=== PATIENT | male | born 1975 | race Caucasian/White ===

== ENCOUNTER 2017-06-17 01:56 | Inpatient (IN) | payer BC, SELFPAY ==
[~2017-06-17] VITALS: Ht 170.2 cm; Wt 75.5 kg
[2017-06-17 03:08] LABS: MEAN CORPUSCULAR HEMOGLOBIN 30.3 pg (27.0-33.0); MEAN CORPUSCULAR HGB CONC 34.6 g/dl (32.0-36.5); MEAN CORPUSCULAR VOLUME 87.5 fl (80.0-96.0); RED CELL DISTRIBUTION WIDTH 12.2 % (11.5-14.5); WHITE BLOOD COUNT 11.5 K/mm3 (4.0-10.0)
[2017-06-17 04:02] LABS: ALBUMIN 4.2 GM/DL (3.2-5.2); ALKALINE PHOSPHATASE 80 U/L (45-117); ALT/SGPT 33 U/L (12-78); ANION GAP 12 MEQ/L (8-16); AST/SGOT 20 U/L (15-37); BILIRUBIN,DIRECT 0.2 MG/DL (0.0-0.2); BILIRUBIN,TOTAL 0.4 MG/DL (0.2-1.0); BLOOD UREA NITROGEN 14 MG/DL (7-18); CALCIUM LEVEL 8.7 MG/DL (8.5-10.1); CARBON DIOXIDE LEVEL 23 MEQ/L (21-32); CHLORIDE LEVEL 111 MEQ/L (98-107); CREATININE FOR GFR 0.77 MG/DL (0.70-1.30); GLOMERULAR FILTRATION RATE > 60.0 (>60); GLUCOSE, FASTING 89 MG/DL (70-105); POTASSIUM SERUM 4.1 MEQ/L (3.5-5.1); SODIUM LEVEL 146 MEQ/L (136-145); TOTAL PROTEIN 7.7 GM/DL (6.4-8.2)
[2017-06-17 04:03] LABS: METHADONE URINE NEGATIVE (NEGATIVE)
[2017-06-17] MEDS ORDERED: LORazepam 0.5 MG TAB PO STA (09:04)
--- NOTE | 2017-06-17 10:31 | REP ---
Head CT without contrast: History: Alcohol use. Comparison study: No comparison study. CT findings: Bone window settings demonstrate an intact bony calvarium. There is no evidence of skull fracture or incidental bony calvarial lesion. The visualized paranasal sinuses appear clear. No intraorbital abnormality is seen. On soft tissue window setting images; the lateral, third, and fourth ventricles are normal in size and position. There is a focal 5 mm low density area in the periventricular white matter of the left posterior temporal lobe which is nonspecific. This may be a small lacunar infarct, focus of demyelination, or early small vessel atherosclerotic change. There are is no evidence of intracranial hemorrhage. No mass, edema, cortical infarction, or midline shift is seen. No extra-axial fluid collection is appreciated. Impression: Nonspecific 5 mm focus of periventricular low density left temporal lobe. This is nonspecific consistent with small lacunar infarct, focus of demyelination, or early small vessel atherosclerotic change. Otherwise negative noncontrast head CT. Signed by Guillermo Kirk MD 06/17/2017 10:23 A
[2017-06-17] MEDS ORDERED: LORazepam 1 MG TAB PO STA (11:42)
--- NOTE | 2017-06-17 13:35 | REP ---
MRI BRAIN WITHOUT CONTRAST: HISTORY: Unknown temporal lobe lesion seen on CT study June 17, 2017. Report of a prior CT study of the brain from an outside facility is available dated November 10, 2016. This also describes of 8 mm hypodensity in the periventricular white matter of the left temporal parietal region. TECHNIQUE: Axial and sagittal imaging planes are utilized for T1 and T2-weighted scans. Sequences include spin echo, fast spin echo, FLAIR, and diffusion weighted sequences. MRI FINDINGS: No bony calvarial lesion is seen. There is no MR evidence of significant paranasal sinus disease. No intraorbital abnormality is seen. Craniocervical junction and upper cervical cord are normal in appearance. Diffusion weighted scan show no evidence to suggest acute ischemia. There is no evidence of intracranial hemorrhage. No extra-axial fluid collection or mass is seen. The study confirms the presence of a sharply circumscribed high T2 low T1 signal intensity 6 mm lesion in the periventricular white matter of the left posterior temporal lobe. This corresponds to the CT abnormality. This solitary lesion is felt to be most compatible with an old lacunar infarct. No other abnormal white matter lesion is seen. The exam is otherwise unremarkable. IMPRESSION: Sharply circumscribed, 6 mm, solitary, low T1/high T2 periventricular lesion left temporal lobe most consistent with old lacunar infarct. This corresponds with the findings described on the CT study from an outside institution dated November 10, 2016 as well as today's CT study. Signed by Guillermo Kirk MD 06/17/2017 02:48 P
[2017-06-17 15:26] VITALS: BP 138/82
[2017-06-17] MEDS ORDERED: LORazepam 2 MG TAB PO PRN (17:00)
[2017-06-17] MEDS ORDERED: ACETAMINOPHEN TAB 650MG DOSE (2X325MG) PO PRN (17:00)
[2017-06-17] MEDS ORDERED: MOM 30ML SUSPENSION UDC PO PRN (17:00)
[2017-06-17] MEDS ORDERED: MAALOX 30 ML SUSP *UDC PO PRN (17:00)
[2017-06-17] MEDS: traZODone 50 MG TAB PO PRN (21:31)
[2017-06-17] MEDS: FOLIC ACID 1 MG TAB PO SCH (21:31)
[2017-06-17] MEDS: MULTIVITAMINS/MINERALS THERAP 1 TAB PO SCH (21:31)
[2017-06-17] MEDS: THIAMINE 100 MG TAB PO SCH (21:32)
[2017-06-17 21:35] VITALS: BP 178/81
[2017-06-18 07:01] VITALS: BP_SYST 117; BP_SYST 141; BP_DIAS 64; BP_DIAS 84
[2017-06-18] MEDS: THIAMINE 100 MG TAB PO SCH ×2 (07:30→20:16)
[2017-06-18] MEDS: FOLIC ACID 1 MG TAB PO SCH (07:30)
[2017-06-18] MEDS: MULTIVITAMINS/MINERALS THERAP 1 TAB PO SCH (07:30)
[2017-06-18 10:42] VITALS: BP 141/84
[2017-06-18] MEDS: LORazepam 1 MG TAB PO PRN ×2 (12:29→21:00)
[2017-06-18 18:00] VITALS: BP 129/67
[2017-06-18 20:00] VITALS: BP 129/67
[2017-06-18] MEDS: OLANZapine 2.5MG TABLET PO SCH (20:16)
[2017-06-19 06:32] VITALS: BP 127/85
[2017-06-19] MEDS: FOLIC ACID 1 MG TAB PO SCH (09:21)
[2017-06-19] MEDS: THIAMINE 100 MG TAB PO SCH ×2 (09:21→20:13)
[2017-06-19] MEDS: MULTIVITAMINS/MINERALS THERAP 1 TAB PO SCH (09:21)
[2017-06-19] MEDS: OLANZapine ORAL DISINTEGRATING TAB 5MG PO PRN ×2 (13:25→20:13)
--- NOTE | 2017-06-19 17:39 | HPE ---
DATE OF ADMISSION: 06/17/2017 HISTORY OF PRESENT ILLNESS: Please refer to psychiatric history and evaluation for further details on this admission. This examination and history is intended for medical issues, which may need treatment, followup or consultation on this 41-year-old male. PRIMARY CARE PROVIDER: He states that he has an appointment on 07/31/2017 with a new primary care provider, Dr. Zayas, in [place]. ALLERGIES: No known allergies. SOCIAL HISTORY: He is single. He has a 9-year-old daughter. EtOH is two to four beers per day. Smokes none. Recreational drug use is marijuana. PAST MEDICAL HISTORY: Negative. PAST SURGICAL HISTORY: Tonsillectomy, adenoidectomy, bilateral inguinal hernia repair. HOME MEDICATIONS: None. FAMILY HISTORY: Noncontributory. LABORATORY STUDIES: WBC 11.5, hemoglobin 15.3, hematocrit 44.1, platelets 299. Sodium 146, potassium 4.1, chloride 111, CO2 23, BUN 14, creatinine 0.77. Toxicology screen positive for cannabinoids. EtOH was 0.166. MRI of the brain showed old lacunar infarcts in the left upper lobe, nothing new. REVIEW OF SYSTEMS: Ten systems review was done and was unremarkable. The patient had no complaints other than jittery and slightly nauseated with sweats from alcohol withdrawal. He was drinking fluids. No vomiting or diarrhea. OBJECTIVE: GENERAL: 41-year-old cooperative male in no acute distress. Height 67 inches, weight 75.8 kg. Body Mass Index (BMI) 26.2. Blood pressure 138/82, pulse 86, respirations 16, temperature 98.6. The patient is alert and oriented times three. HEENT: Pupils are equal and reactive to light. Extraocular muscles intact. Sclerae clear. Conjunctivae normal. No facial asymmetry. Pharynx, gums and tongue pink and moist. Tongue is midline. NECK: Supple without lymphadenopathy, thyromegaly or goiter. Carotids 2+ without bruit. CHEST: Clear to auscultation without wheeze or retraction. HEART: Regular. ABDOMEN: Benign. Bowel sounds positive. GENITOURINARY/RECTAL: Not done. EXTREMITIES: Equal strenght. Full range of motion. No cyanosis, clubbing or edema. Peripheral pulses equal and palpable bilaterally. SKIN: Warm and dry. IMPRESSION/PLAN: 1. Psychiatric plan per psychiatry. 2. Monitor and treat for alcohol withdrawal. No acute medical issues.
--- NOTE | 2017-06-19 17:44 | MHIPNPDOC ---
[facility] Progress Note Progress Note DATE OF SERVICE: 06/19/17 HISTORY: Patient was seen and evaluated for his progress in the inpatient unit went safety stuff and nurse. Patient reported that he was feeling happy before coming to the hospital. Also having increased parts in his mind and not sleeping well for days but still having enough energy to get multiple things done. He reported that when he is hyper like that. He likes to use alcohol and marijuana to self medicate. He is not able to remember to ask the details of what led him to be admitted to the hospital, but reported that he was nearly naked on the beach before he was picked up by the police. Discussed about the recent stresses, which includes not able to see His daughter more often, having financial problems and conflicts with his mother. He denies any suicidal or homicidal ideations, but reported that at times he feels paranoid. Patient remains irritable and demanding at times. Appetite. He thinks that he wants to eat to pop corns packets per day. He reported he used to use multiple drugs including Adderall, heroine, marijuana, alcohol, but recently has been using alcohol and marijuana on late never received any substance abuse treatment. He reported that he has taken psychotropic medications in the past, but not able to remember any names. Willing to try Zyprexa VITAL SIGNS: See below. CURRENT MEDICATIONS: See below. 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 Bipolar disorder, current episode manic versus substance induced mood disorder. MANAGEMENT PLAN: Consider increasing Zyprexa. Zyprexa Zydis for when necessary anxiety and agitation. TIME SPENT:. 25 minutes. Vital Signs Vital Signs Date Time Temp Pulse Resp B/P (MAP) Pulse Ox O2 Delivery O2 Flow Rate FiO2 06/19/17 06:32 99.4 84 18 127/85 (99) Room Air 06/17/17 15:26 97 Current Medications Current Medications Folic Acid (Folic Acid) 1 mg DAILY PO Last administered on 06/19/17 09:21; Start 06/17/17 at 09:00; Stop 07/17/17 at 08:59 Multivitamins (Theragram-M) 1 tab DAILY PO Last administered on 06/19/17 09:21 ; Start 06/17/17 at 09:00; Stop 07/17/17 at 08:59 Olanzapine (ZyPREXA ZYDIS) 5 mg Q6HP PRN PO ANXIETY/AGITATION Last administered on 06/19/17 13:25; Start 06/19/17 at 13:00; Stop 07/19/17 at 12:59 Olanzapine (ZyPREXA) 2.5 mg QHS PO Last administered on 06/18/17 20:16; Start 06/18/17 at 21:00; Stop 07/18/17 at 20:59 Thiamine HCl (Thiamine HCl) 100 mg BID PO Last administered on 06/19/17 09:21 ; Start 06/17/17 at 17:30; Stop 06/20/17 at 09:01 Trazodone HCl (Desyrel) 50 mg QHSP PRN PO INSOMNIA Last administered on 21:31; Start 06/17/17 at 17:00; Stop 07/17/17 at 16:59 Allergies Coded Allergies: No Known Allergies (Unverified , 06/17/17) GABRIELE CANALES MD Jun 19, 2017 17:44
[2017-06-19 18:00] VITALS: BP 138/78
--- NOTE | 2017-06-19 19:13 | MHHPE ---
DATE OF ADMISSION: 06/18/2017 CHIEF COMPLAINT: Feels stressed. SUBJECTIVE: He is 41 years old. He is from his partner. They have a 9-year-old daughter who lives with her mother in [place]. The patient lives in [place]. He sees her fairly regularly, last saw her last week. The patient was brought in to the emergency room as he was found at [facility]. The police had been called there as he was found to be running around naked. He informed police that he did not have anything to live for, was drinking, was smoking pot. He remembers this only vaguely. He was brought in, assessed, was quite vague and was admitted. 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 He says he has been there for about 6 months and this is the steadiest job that he has found lately. He does not have a fixed place that he stays at, was with a friend from December to March of this year, and then since then has been living at different friend's places for a few days at a time, has stayed at his mother's place for a couple of nights off and on as well, and apparently lately has spent a night or two in his car. It should be noted that the history is obtained from the patient, as well as from the chart itself. Says his mother told him a few nights ago that he needed to leave. He says that she does not need to give him a reason. He got out of work on Monday and decided to drive to [facility]. He says that he has done that periodically in the past, as the family would tend to come here and camp during the summer and he had fond memories of it and wanted to watch the sunset. Says he got here, and took a few beers, says that they are more potent than usual beers and does not remember much after that other than being brought here. He denies that he was trying to kill himself, however. 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 Says he drinks fairly regularly, suggests drinks possibly more than he should though is vague about this. He also says that he smokes cannabis daily, often in the morning, and then later in the day. Says it keeps his moods stable and that without it there are times when his moods shoot up, feels elated, though he was rather reluctant to admit that and he feels much more energetic than his surroundings or usual, has racing thoughts, rapid speech. Says others point it out to him and that when he smokes the pot that it brings the mood down to an even keel. He feels it prevents it from diminishing further and him becoming depressed. He says that without it, when moods shoot up, his need for sleep diminishes, he is full of energy, more so than usual, has plenty of ideas, says may start doing things but has a hard time keeping up and then tends to come down after 3 to 5 days. Says the cannabis is the only thing he has found to stabilize him. Says that there are times when he has been depressed, but not for a while, though is vague on this. Does say he was depressed a few years ago, then decided to go to [place] to visit his brother and then go to the ocean and drown himself, but says never got as far as the beach. Was hospitalized in [place] at the time. Was there for about 5 days, and then discharged. He suggests that he may have been diagnosed with bipolar disorder at that time. This is about 5 years ago. Says the only time he tried taking his life is when he overdosed about 13 years ago. He says that he has seen a psychiatrist/therapist in the past , but is somewhat vague on this. Says was given pills frequently and did not like that. Says that they sedated him and depressed him, they included Seroquel and Depakote among them. He does say, however, that he felt a low dose of Zyprexa was useful at 2.5 mg. Says that this tended to help. Has not been in treatment for a while. He feels he is almost back to his usual self, says had a good night of sleep last night in the hospital and felt that he needed it. He has spoken with his mother, somewhat reluctantly, to let her know that he is in the hospital. Says has been trying to find a place for himself so his situation becomes steadier and his daughter can visit him with comfort. He acknowledges that he tends to spend a fair amount of money on various things. Does not think that it is confined to times he has an elated mood. PAST PSYCHIATRIC HISTORY: As indicated above. Has had at least one previous hospitalization. Has attempted his life on one occasion. Has been in outpatient care for a brief while, but none lately. FAMILY PSYCHIATRIC HISTORY: Denies any, but eludes to maternal grandmother having spent time in the hospital. Does say his sister, who lives with his mother, takes Xanax regularly. MEDICAL HISTORY: No acute medical problems, though an MRI of the brain done here shows an old lacunar infarct in the temporal region, left posterior temporal lobe. No acute concerns. MEDICATIONS: None. ALLERGIES: No known drug allergies. SOCIAL HISTORY: Was raised in [place]. When asked about his childhood he teared up and says that he did not want to talk about it, but alluded to difficult times. He does not think that he gets nightmares about them, but does have thoughts about them. Says his parents would try to get him to talk about matters related to his childhood, but again he is vague on this. 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 Apparently has a bachelor's degree. He has a child, a daughter who is 9 years old and lives with the patient's ex partner, the child's mother, in [place]. They have been for awhile. MENTAL STATUS EXAMINATION: He is neat. He is cooperative. Mildly fidgety. He is coherent for the most part, at times tangential. Speech is normal in amount and rate. No agitation. No psychomotor retardation. Affect is somewhat labile. Tears up quite easily when talking about difficult matters, and then reconstitutes. He denies any suicidal thoughts or intents. No homicidal ideas or intents. Currently, no evidence of any psychosis. Does not appear internally preoccupied. No delusional ideations elicited. He is alert and oriented to time, place and person. Intellect average. Cognition is grossly intact. No fluctuation of consciousness. Judgment and insight are compromised. INVESTIGATIONS: These show a complete blood count essentially within normal limits except for a slight rise in white cell count at 11.5. Metabolic profile essentially within normal limits except for a sodium at 146, which is slightly raised, as is chloride at 111. Toxicology is positive for cannabinoids. CT scan of the head was done here and the brain MRI showed a left posterior lobe lacunar infarct. I was informed by Dr. Baxter, emergency room physician, the patient had an MRI done at [facility] relatively recently in [place] and this one showed no change from that, I am not sure of the details. VITAL SIGNS: Blood pressure 141/84, pulse 98, temperature 98.2. ASSESSMENT: 1. Other specific bipolar and related disorders. 2. Rule out bipolar type 1 disorder. 3. Cannabis use disorder. 4. Alcohol use disorder. 5. Has no fixed residence. 6. Poor social supports. 7. Separation from his daughter. Has mood fluctuations and they seem to be quite possibly independent of his drug use. The drug use exacerbates them and sometimes temporarily, with the cannabis, feels better. The fluctuations in mood have interfered with his functioning quite considerably, as does the use of cannabis and alcohol. The differential diagnosis would include bipolar disorder, and collateral information would help clarify it. PLAN: He is admitted to the inpatient psychiatric unit and placed on relevant precautions. We will look at obtaining collateral information. He appears to be more coherent than when he was apparently seen in the emergency room when he first came in and is able to narrate a soto history. He agrees to using Zyprexa at 2.5 mg at night. He is aware of the risks, benefits and drawbacks. I think that this is a start. He does need a mood stabilizer. In addition to this, I suggest that he use Zydis Zyprexa for agitation, and he will have oral Ativan available as well, to use with precaution. He is placed on withdrawal precautions as well. I would suggest obtaining old records from his previous hospitalization in [place]. He will receive a medicine consult if indicated. He will be discharged with followup once he is stable. He will be seen the assigned psychiatrist, as well as the treatment team and life care planner tomorrow for further recommendations. I would anticipate a 5 to 7 day stay. The assessment took 60 minutes.
[2017-06-19] MEDS: OLANZapine 2.5MG TABLET PO SCH (20:13)
[2017-06-19 20:54] VITALS: BP 138/78
[2017-06-20 07:40] VITALS: BP 120/83
[2017-06-20] MEDS: MULTIVITAMINS/MINERALS THERAP 1 TAB PO SCH (08:58)
[2017-06-20] MEDS: THIAMINE 100 MG TAB PO SCH (08:58)
[2017-06-20] MEDS: FOLIC ACID 1 MG TAB PO SCH (08:58)
[2017-06-20 18:00] VITALS: BP 129/78
--- NOTE | 2017-06-20 19:22 | MHIPNPDOC ---
[facility] Progress Note Progress Note DATE OF SERVICE: 06/20/17 HISTORY: Patient was seen and evaluated for his progress in the inpatient psychiatric unit on the evaluation. Patient reported that he is not happy with the stay over here because he likes his energy and likes to do many different things. He reported that if any medication is trying to take away his high, he would like to stop all the medications, but was able to take Zyprexa yesterday night and thinks that it helped him to sleep better. Discussed about bipolar disorder and its effect on body. He talked more about his substance abuse and reported that he has been using various drugs including marijuana and alcohol. He is tangential and circumstantial and keeps going back to having and enjoying his high energy, time and all the problems and stresses that he has in his life. He denies any suicidal or homicidal ideations. Denies any side effect of the medications and wants to continue the current treatment. He is willing to increase the dose of Zyprexa to 5 mg. VITAL SIGNS: See below. CURRENT MEDICATIONS: See below. 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 Bipolar disorder, current episode manic versus substance induced mood disorder. MANAGEMENT PLAN: Increase the dose of Zyprexa to 5 mg at at bedtime. TIME SPENT:, 15 minutes. Vital Signs Vital Signs Date Time Temp Pulse Resp B/P (MAP) Pulse Ox O2 Delivery O2 Flow Rate FiO2 06/20/17 18:00 98.0 56 16 129/78 (95) 97 Room Air Current Medications Current Medications Acetaminophen (Tylenol Tab) 650 mg Q6HP PRN PO HEADACHE or DISCOMFORT; Start at 17:00; Stop 07/17/17 at 16:59 Al Hydrox/Mg Hydrox/Simethicone (Mylanta) 30 ml Q4HP PRN PO HEARTBURN/ INDIGESTION; Start 06/17/17 at 17:00; Stop 07/17/17 at 16:59 Folic Acid (Folic Acid) 1 mg DAILY PO Last administered on 06/20/17 08:58; Start 06/17/17 at 09:00; Stop 07/17/17 at 08:59 Home Med (Med Rec Complete!) ASDIRECTED XX ; Start 06/17/17 at 09:30; Stop at 09:30; Status DC Lorazepam (Ativan) 0.5 mg STAT STAT PO Last administered on 06/17/17 09:04; Start 06/17/17 at 09:04; Stop 06/17/17 at 09:05; Status DC Lorazepam (Ativan) 1 mg BIDP PRN PO ANXIETY Last administered on 06/18/17 21: 00; Start 06/18/17 at 11:00; Stop 06/19/17 at 11:00; Status DC Lorazepam (Ativan) 1 mg STAT STAT PO Last administered on 06/17/17 11:42; Start 06/17/17 at 11:42; Stop 06/17/17 at 11:43; Status DC Lorazepam (Ativan) 2 mg ASDIRECTED PRN PO SEE PROTOCOL Last administered on 21:34; Start 06/17/17 at 17:00; Stop 06/18/17 at 10:51; Status DC Magnesium Hydroxide (Milk Of Magnesia) 30 ml DAILYPRN PRN PO CONSTIPATION; Start 06/17/17 at 17:00; Stop 07/17/17 at 16:59 Multivitamins (Theragram-M) 1 tab DAILY PO Last administered on 06/20/17 08:58 ; Start 06/17/17 at 09:00; Stop 07/17/17 at 08:59 Olanzapine (ZyPREXA ZYDIS) 5 mg Q6HP PRN PO ANXIETY/AGITATION Last administered on 06/19/17 20:13; Start 06/19/17 at 13:00; Stop 07/19/17 at 12:59 Olanzapine (ZyPREXA) 2.5 mg QHS PO Last administered on 06/19/17 20:13; Start 06/18/17 at 21:00; Stop 07/18/17 at 20:59 Thiamine HCl (Thiamine HCl) 100 mg BID PO Last administered on 06/20/17 08:58 ; Start 06/17/17 at 17:30; Stop 06/20/17 at 09:01; Status DC Trazodone HCl (Desyrel) 50 mg QHSP PRN PO INSOMNIA Last administered on 21:31; Start 06/17/17 at 17:00; Stop 07/17/17 at 16:59 Allergies Coded Allergies: No Known Allergies (Unverified , 06/17/17) GABRIELE CANALES MD Jun 20, 2017 19:22
[2017-06-20 20:23] VITALS: BP 129/78
[2017-06-20] MEDS: OLANZapine 5 MG TAB PO SCH (20:54)
[2017-06-20] MEDS: OLANZapine ORAL DISINTEGRATING TAB 5MG PO PRN (20:54)
[2017-06-21 07:01] VITALS: BP 138/78
[2017-06-21] MEDS: MULTIVITAMINS/MINERALS THERAP 1 TAB PO SCH (08:02)
[2017-06-21] MEDS: FOLIC ACID 1 MG TAB PO SCH (08:02)
[2017-06-21] MEDS: OLANZapine ORAL DISINTEGRATING TAB 5MG PO PRN ×2 (11:38→17:59)
[2017-06-21] MEDS ORDERED: hydrOXYzine 50 MG TAB PO ONE (14:15)
[2017-06-21 18:00] VITALS: BP 126/76
[2017-06-21] MEDS ORDERED: hydrOXYzine 50 MG TAB PO SCH (18:00)
--- NOTE | 2017-06-21 18:11 | MHIPNPDOC ---
[facility] Progress Note Progress Note DATE OF SERVICE: 06/21/17 HISTORY: Patient was seen and evaluated for his progress in the inpatient psychiatric unit. On evaluation, patient reported that he is very upset being over here and wants to go home as soon as possible. He thinks that is not involved with him and he has been on apex of his life. He reported that he has not felt this way since age of 16 years and has multiple plans lined up to do various things for his life. He remains irritable and when he was not able to get his demanded medication of Ativan. He was threatening to be aggressive. He responded well to hydroxyzine and did not need any IM medications. Patient remains grandiose, elated, and reported that he is not going to the group because it's a waste of time and he can do much better. Reports sleeping fine with the current medication but refused to eat and attending reporting that he is a 'free [place]' who wants to eat from all the restaurants possible. After this, he refused to talk with the author, but nursing staff reported that recently he was tearful while talking about his daughter. Patient remains labile and unpredictable VITAL SIGNS: See below. CURRENT MEDICATIONS: See below. MENTAL STATUS EXAMINATION: 41yo male sitting in the chair, looks appropriate for the stated age, fair hygiene and grooming,increased psychomotor activities, no abnormal movements, superficially cooperative with fair eye contact, speech is increased in rate, normal rhythm, increased amount, mood is irritable & elated, affect labile and mood congruent, thought process has FOI, denies suicidal and homicidal ideations , denies hallucinations, grandiose delusions elicited, aaox3, fair immediate, short term and alf memory, limited insight, judgement and impulse control DIAGNOSES: 1. Bipolar disorder, current episode manic versus substance induced mood disorder. MANAGEMENT PLAN: Increase the dose of Zyprexa to 5 mg at at bedtime. TIME SPENT:, 15 minutes. Vital Signs Vital Signs Date Time Temp Pulse Resp B/P (MAP) Pulse Ox O2 Delivery O2 Flow Rate FiO2 06/21/17 07:01 98.5 80 16 138/78 (98) 06/20/17 18:00 97 Room Air Current Medications Current Medications Acetaminophen (Tylenol Tab) 650 mg Q6HP PRN PO HEADACHE or DISCOMFORT; Start at 17:00; Stop 07/17/17 at 16:59 Al Hydrox/Mg Hydrox/Simethicone (Mylanta) 30 ml Q4HP PRN PO HEARTBURN/ INDIGESTION; Start 06/17/17 at 17:00; Stop 07/17/17 at 16:59 Folic Acid (Folic Acid) 1 mg DAILY PO Last administered on 06/21/17 08:02; Start 06/17/17 at 09:00; Stop 07/17/17 at 08:59 Home Med (Med Rec Complete!) ASDIRECTED XX ; Start 06/17/17 at 09:30; Stop at 09:30; Status DC Lorazepam (Ativan) 0.5 mg STAT STAT PO Last administered on 06/17/17 09:04; Start 06/17/17 at 09:04; Stop 06/17/17 at 09:05; Status DC Lorazepam (Ativan) 1 mg BIDP PRN PO ANXIETY Last administered on 06/18/17 21: 00; Start 06/18/17 at 11:00; Stop 06/19/17 at 11:00; Status DC Lorazepam (Ativan) 1 mg STAT STAT PO Last administered on 06/17/17 11:42; Start 06/17/17 at 11:42; Stop 06/17/17 at 11:43; Status DC Lorazepam (Ativan) 2 mg ASDIRECTED PRN PO SEE PROTOCOL Last administered on 21:34; Start 06/17/17 at 17:00; Stop 06/18/17 at 10:51; Status DC Magnesium Hydroxide (Milk Of Magnesia) 30 ml DAILYPRN PRN PO CONSTIPATION; Start 06/17/17 at 17:00; Stop 07/17/17 at 16:59 Multivitamins (Theragram-M) 1 tab DAILY PO Last administered on 06/21/17 08:02 ; Start 06/17/17 at 09:00; Stop 07/17/17 at 08:59 Olanzapine (ZyPREXA ZYDIS) 5 mg Q6HP PRN PO ANXIETY/AGITATION Last administered on 06/21/17 17:59; Start 06/19/17 at 13:00; Stop 07/19/17 at 12:59 Olanzapine (ZyPREXA) 2.5 mg QHS PO Last administered on 06/19/17 20:13; Start 06/18/17 at 21:00; Stop 06/20/17 at 19:23; Status DC Olanzapine (ZyPREXA) 5 mg QHS PO Last administered on 06/20/17 20:54; Start at 21:00; Stop 07/20/17 at 20:59 Thiamine HCl (Thiamine HCl) 100 mg BID PO Last administered on 06/20/17 08:58 ; Start 06/17/17 at 17:30; Stop 06/20/17 at 09:01; Status DC Trazodone HCl (Desyrel) 50 mg QHSP PRN PO INSOMNIA Last administered on 21:31; Start 06/17/17 at 17:00; Stop 07/17/17 at 16:59 Allergies Coded Allergies: No Known Allergies (Unverified , 06/17/17) GABRIELE CANALES MD Jun 21, 2017 18:11
[2017-06-21] MEDS: hydrOXYzine 50 MG TAB PO PRN (18:51)
[2017-06-21] MEDS: OLANZapine 5 MG TAB PO SCH (20:10)
[2017-06-21] MEDS: traZODone 50 MG TAB PO PRN (20:10)
[2017-06-22 06:17] VITALS: BP 121/71
[2017-06-22] MEDS: OLANZapine ORAL DISINTEGRATING TAB 5MG PO PRN ×2 (06:25→12:39)
[2017-06-22] MEDS: FOLIC ACID 1 MG TAB PO SCH (08:30)
[2017-06-22] MEDS: MULTIVITAMINS/MINERALS THERAP 1 TAB PO SCH (08:30)
[2017-06-22] MEDS: hydrOXYzine 50 MG TAB PO PRN ×2 (09:48→15:50)
--- NOTE | 2017-06-22 14:51 | MHIPNPDOC ---
[facility] Progress Note Progress Note DATE OF SERVICE: 06/22/17 HISTORY: Patient was seen and evaluated for his progress in the inpatient psychiatry unit. On evaluation, patient reported that he is missing his daughter and he has canceled his visitation with the daughter for the weekend. He was able to get help of His mother with the problems with the car. He was able to hold things together in conversation Initially, but after second time he was not able to hold it together and stood up and reported he will not be able to talk anymore. 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 Patient continued to need multiple when necessary medications during the day to calm down and not be agitated, no aggressive behavior reported. Patient denies any craving for substance use and reports that he will not use it for about a month after the discharge from the hospital, but not willing to commit for any long-term substance use treatment. He continued to report that he has been feeling 'the best' for his life and refused to eat food in the hospital and refused to participate in the unit activities. Denies any suicidal or homicidal ideations and denies hallucinations. VITAL SIGNS: See below. CURRENT MEDICATIONS: See below. MENTAL STATUS EXAMINATION: 41yo male sitting in the chair, looks appropriate for the stated age, fair hygiene and grooming,increased psychomotor activities, no abnormal movements, superficially cooperative with fair eye contact, speech is increased in rate, normal rhythm, increased amount, mood is irritable & elated, affect labile and mood congruent, thought process has FOI, denies suicidal and homicidal ideations , denies hallucinations, grandiose delusions elicited, aaox3, fair immediate, short term and chcf memory, limited insight, judgement and impulse control DIAGNOSES: 1. Bipolar disorder, current episode manic versus substance induced mood disorder. MANAGEMENT PLAN: Continue current treatment TIME SPENT:, 15 minutes. Vital Signs Vital Signs Date Time Temp Pulse Resp B/P (MAP) Pulse Ox O2 Delivery O2 Flow Rate FiO2 06/22/17 06:17 99.2 89 16 121/71 (88) Room Air 06/20/17 18:00 97 Current Medications Current Medications Acetaminophen (Tylenol Tab) 650 mg Q6HP PRN PO HEADACHE or DISCOMFORT; Start at 17:00; Stop 07/17/17 at 16:59 Al Hydrox/Mg Hydrox/Simethicone (Mylanta) 30 ml Q4HP PRN PO HEARTBURN/ INDIGESTION; Start 06/17/17 at 17:00; Stop 07/17/17 at 16:59 Folic Acid (Folic Acid) 1 mg DAILY PO Last administered on 06/22/17 08:30; Start 06/17/17 at 09:00; Stop 07/17/17 at 08:59 Home Med (Med Rec Complete!) ASDIRECTED XX ; Start 06/17/17 at 09:30; Stop at 09:30; Status DC Hydroxyzine HCl (Atarax) 50 mg Q6H PO ; Start 06/21/17 at 18:00; Stop 06/21/17 at 18:39; Status DC Hydroxyzine HCl (Atarax) 50 mg Q6HP PRN PO anxiety Last administered on 09:48; Start 06/21/17 at 18:00; Stop 07/21/17 at 17:59 Lorazepam (Ativan) 0.5 mg STAT STAT PO Last administered on 06/17/17 09:04; Start 06/17/17 at 09:04; Stop 06/17/17 at 09:05; Status DC Lorazepam (Ativan) 1 mg BIDP PRN PO ANXIETY Last administered on 06/18/17 21: 00; Start 06/18/17 at 11:00; Stop 06/19/17 at 11:00; Status DC Lorazepam (Ativan) 1 mg STAT STAT PO Last administered on 06/17/17 11:42; Start 06/17/17 at 11:42; Stop 06/17/17 at 11:43; Status DC Lorazepam (Ativan) 2 mg ASDIRECTED PRN PO SEE PROTOCOL Last administered on 21:34; Start 06/17/17 at 17:00; Stop 06/18/17 at 10:51; Status DC Magnesium Hydroxide (Milk Of Magnesia) 30 ml DAILYPRN PRN PO CONSTIPATION; Start 06/17/17 at 17:00; Stop 07/17/17 at 16:59 Multivitamins (Theragram-M) 1 tab DAILY PO Last administered on 06/22/17 08:30 ; Start 06/17/17 at 09:00; Stop 07/17/17 at 08:59 Olanzapine (ZyPREXA ZYDIS) 5 mg Q6HP PRN PO ANXIETY/AGITATION Last administered on 06/22/17 12:39; Start 06/19/17 at 13:00; Stop 07/19/17 at 12:59 Olanzapine (ZyPREXA) 2.5 mg QHS PO Last administered on 06/19/17 20:13; Start 06/18/17 at 21:00; Stop 06/20/17 at 19:23; Status DC Olanzapine (ZyPREXA) 5 mg QHS PO Last administered on 06/21/17 20:10; Start at 21:00; Stop 07/20/17 at 20:59 Thiamine HCl (Thiamine HCl) 100 mg BID PO Last administered on 06/20/17 08:58 ; Start 06/17/17 at 17:30; Stop 06/20/17 at 09:01; Status DC Trazodone HCl (Desyrel) 50 mg QHSP PRN PO INSOMNIA Last administered on 20:10; Start 06/17/17 at 17:00; Stop 07/17/17 at 16:59 Allergies Coded Allergies: No Known Allergies (Unverified , 06/17/17) GABRIELE CANALES MD Jun 22, 2017 14:51
[2017-06-22 18:00] VITALS: BP 140/71
[2017-06-22] MEDS: OLANZapine 5 MG TAB PO SCH (20:43)
[2017-06-22] MEDS: traZODone 50 MG TAB PO PRN (20:43)
[2017-06-23] MEDS: OLANZapine ORAL DISINTEGRATING TAB 5MG PO PRN ×2 (06:56→12:59)
[2017-06-23 06:58] VITALS: BP 114/63
[2017-06-23] MEDS: FOLIC ACID 1 MG TAB PO SCH (08:12)
[2017-06-23] MEDS: MULTIVITAMINS/MINERALS THERAP 1 TAB PO SCH (08:12)
[2017-06-23] MEDS: hydrOXYzine 50 MG TAB PO PRN ×2 (09:02→15:19)
[2017-06-23 11:20] VITALS: BP 114/63
--- NOTE | 2017-06-23 16:02 | MHIPNPDOC ---
[facility] Progress Note Progress Note DATE OF SERVICE: 06/23/17 HISTORY: Patient was seen and evaluated for his progress in inpatient psychiatry unit. On evaluation, patient continued to report being happy and he was found to be irritable. He continued to need more belligerent direction and multiple when necessary medications to calm himself down. No aggressive behavior reported. He continues to deny any suicidal or homicidal ideations, but continued to refuse to eat food here or participate in the unit activities including group therapy, milieu treatment. He reported that he is planning to stop when necessary medications Once he is outside the hospital. Discussed about transitioning from when necessary medication to regular medications. He denies sleep problems. His mood remains labile, at times tearing up while other times "being on apex of the life". He denies having cravings for using alcohol, marijuana or other drugs, but refusing treatment for substance use problems. VITAL SIGNS: See below. CURRENT MEDICATIONS: See below. MENTAL STATUS EXAMINATION: 41yo male sitting in the chair, looks appropriate for the stated age, fair hygiene and grooming,increased psychomotor activities, no abnormal movements, superficially cooperative with fair eye contact, speech is increased in rate, normal rhythm, increased amount, mood is irritable & elated, affect labile and mood congruent, thought process has FOI, denies suicidal and homicidal ideations , denies hallucinations, grandiose delusions elicited, aaox3, fair immediate, short term and care home memory, limited insight, judgement and impulse control DIAGNOSES: 1. Bipolar disorder, current episode manic versus substance induced mood disorder. MANAGEMENT PLAN: Zyprexa to 10mg HS TIME SPENT:, 15 minutes. Vital Signs Vital Signs Date Time Temp Pulse Resp B/P (MAP) Pulse Ox O2 Delivery O2 Flow Rate FiO2 06/23/17 11:20 86 114/63 06/23/17 06:58 98.2 16 Room Air 06/20/17 18:00 97 Current Medications Current Medications Acetaminophen (Tylenol Tab) 650 mg Q6HP PRN PO HEADACHE or DISCOMFORT; Start at 17:00; Stop 07/17/17 at 16:59 Al Hydrox/Mg Hydrox/Simethicone (Mylanta) 30 ml Q4HP PRN PO HEARTBURN/ INDIGESTION; Start 06/17/17 at 17:00; Stop 07/17/17 at 16:59 Folic Acid (Folic Acid) 1 mg DAILY PO Last administered on 06/23/17 08:12; Start 06/17/17 at 09:00; Stop 07/17/17 at 08:59 Home Med (Med Rec Complete!) ASDIRECTED XX ; Start 06/17/17 at 09:30; Stop at 09:30; Status DC Hydroxyzine HCl (Atarax) 50 mg Q6H PO ; Start 06/21/17 at 18:00; Stop 06/21/17 at 18:39; Status DC Hydroxyzine HCl (Atarax) 50 mg Q6HP PRN PO anxiety Last administered on 15:19; Start 06/21/17 at 18:00; Stop 07/21/17 at 17:59 Lorazepam (Ativan) 0.5 mg STAT STAT PO Last administered on 06/17/17 09:04; Start 06/17/17 at 09:04; Stop 06/17/17 at 09:05; Status DC Lorazepam (Ativan) 1 mg BIDP PRN PO ANXIETY Last administered on 06/18/17 21: 00; Start 06/18/17 at 11:00; Stop 06/19/17 at 11:00; Status DC Lorazepam (Ativan) 1 mg STAT STAT PO Last administered on 06/17/17 11:42; Start 06/17/17 at 11:42; Stop 06/17/17 at 11:43; Status DC Lorazepam (Ativan) 2 mg ASDIRECTED PRN PO SEE PROTOCOL Last administered on 21:34; Start 06/17/17 at 17:00; Stop 06/18/17 at 10:51; Status DC Magnesium Hydroxide (Milk Of Magnesia) 30 ml DAILYPRN PRN PO CONSTIPATION; Start 06/17/17 at 17:00; Stop 07/17/17 at 16:59 Multivitamins (Theragram-M) 1 tab DAILY PO Last administered on 06/23/17 08:12 ; Start 06/17/17 at 09:00; Stop 07/17/17 at 08:59 Olanzapine (ZyPREXA ZYDIS) 5 mg Q6HP PRN PO ANXIETY/AGITATION Last administered on 06/23/17 12:59; Start 06/19/17 at 13:00; Stop 07/19/17 at 12:59 Olanzapine (ZyPREXA) 2.5 mg QHS PO Last administered on 06/19/17 20:13; Start 06/18/17 at 21:00; Stop 06/20/17 at 19:23; Status DC Olanzapine (ZyPREXA) 5 mg QHS PO Last administered on 06/22/17 20:43; Start at 21:00; Stop 06/23/17 at 13:57; Status DC Olanzapine (ZyPREXA) 10 mg QHS PO ; Start 06/23/17 at 21:00; Stop 07/23/17 at 20 :59 Thiamine HCl (Thiamine HCl) 100 mg BID PO Last administered on 06/20/17 08:58 ; Start 06/17/17 at 17:30; Stop 06/20/17 at 09:01; Status DC Trazodone HCl (Desyrel) 50 mg QHSP PRN PO INSOMNIA Last administered on 20:43; Start 06/17/17 at 17:00; Stop 07/17/17 at 16:59 Allergies Coded Allergies: No Known Allergies (Unverified , 06/17/17) GABRIELE CANALES MD Jun 23, 2017 16:02
[2017-06-23 18:00] VITALS: BP 118/61
[2017-06-23] MEDS: OLANZapine 10 MG TAB PO SCH (20:08)
[2017-06-23] MEDS: traZODone 50 MG TAB PO PRN (20:55)
[2017-06-24 06:00] VITALS: BP 136/80
[2017-06-24] MEDS: OLANZapine ORAL DISINTEGRATING TAB 5MG PO PRN ×2 (06:06→16:24)
[2017-06-24] MEDS: MULTIVITAMINS/MINERALS THERAP 1 TAB PO SCH (08:30)
[2017-06-24] MEDS: FOLIC ACID 1 MG TAB PO SCH (08:30)
[2017-06-24] MEDS: hydrOXYzine 50 MG TAB PO PRN ×2 (12:26→22:21)
[2017-06-24 18:00] VITALS: BP 114/68
[2017-06-24] MEDS: OLANZapine 10 MG TAB PO SCH (20:10)
[2017-06-25 06:49] VITALS: BP 107/52
[2017-06-25] MEDS: MULTIVITAMINS/MINERALS THERAP 1 TAB PO SCH (08:02)
[2017-06-25] MEDS: FOLIC ACID 1 MG TAB PO SCH (08:02)
[2017-06-25] MEDS: OLANZapine ORAL DISINTEGRATING TAB 5MG PO PRN ×2 (08:36→15:17)
[2017-06-25] MEDS: hydrOXYzine 50 MG TAB PO PRN ×2 (08:58→17:35)
[2017-06-25] MEDS: QUEtiapine FUMARATE 200 MG TAB PO SCH ×4 (09:00→20:51)
[2017-06-25] MEDS ORDERED: HALOPERIDOL 10 MG TAB PO STA (12:13)
[2017-06-25 18:00] VITALS: BP 126/78
[2017-06-25] MEDS: OLANZapine 10 MG TAB PO SCH (20:18)
[2017-06-25] MEDS: traZODone 50 MG TAB PO PRN (20:51)
[2017-06-26 06:41] VITALS: BP 104/53
[2017-06-26] MEDS: QUEtiapine FUMARATE 200 MG TAB PO SCH ×2 (09:00→20:25)
[2017-06-26] MEDS: FOLIC ACID 1 MG TAB PO SCH (09:14)
[2017-06-26] MEDS: MULTIVITAMINS/MINERALS THERAP 1 TAB PO SCH (09:14)
[2017-06-26] MEDS: OLANZapine ORAL DISINTEGRATING TAB 5MG PO PRN ×2 (09:18→15:57)
[2017-06-26] MEDS: hydrOXYzine 50 MG TAB PO PRN ×2 (11:10→17:45)
--- NOTE | 2017-06-26 15:59 | MHIPNPDOC ---
[facility] Progress Note Progress Note DATE OF SERVICE: 06/26/17 HISTORY: Patient was seen and evaluated for his progress in the inpatient psychiatry unit. On evaluation, patient reported that he is The happiest person in his life and still not able to understand why he has to be in the hospital. Continues to refuse eating food over here the unit and pace in the unit. Over the weekend he needed when necessary medications multiple times for anxiety and agitation and not able to follow verbal redirections. No aggressive episode reported and did not need restraints or IM medications. He continues to deny any suicidal or homicidal ideations and continues to deny any psychotic symptoms including hallucinations and paranoid ideations, sleeping fine. He continued to blame being here is making him angry, but not able to see that his mood problems are needing multiple when necessary medications and is not able to control those mood problems. It appears to go up on the current dose of Zyprexa but able to continue to take when necessary Zydis & Atarax. VITAL SIGNS: See below. CURRENT MEDICATIONS: See below. MENTAL STATUS EXAMINATION: 41yo male sitting in the chair, looks appropriate for the stated age, fair hygiene and grooming, increased psychomotor activities, no abnormal movements, superficially cooperative with fair eye contact, speech is increased in rate, normal rhythm, increased amount, mood is irritable, affect constricted and mood congruent, thought process is more logical & goal directed, denies suicidal and homicidal ideations, denies hallucinations, aaox3, fair immediate, short term and long term care pharmacist memory, limited insight, judgement and impulse control DIAGNOSES: 1. Bipolar disorder, current episode manic versus substance induced mood disorder. MANAGEMENT PLAN: Zyprexa to 10mg HS TIME SPENT:, 15 minutes. Vital Signs Vital Signs Date Time Temp Pulse Resp B/P (MAP) Pulse Ox O2 Delivery O2 Flow Rate FiO2 06/26/17 06:41 98.4 68 16 104/53 (70) Room Air 06/20/17 18:00 97 Current Medications Current Medications Acetaminophen (Tylenol Tab) 650 mg Q6HP PRN PO HEADACHE or DISCOMFORT; Start at 17:00; Stop 07/17/17 at 16:59 Al Hydrox/Mg Hydrox/Simethicone (Mylanta) 30 ml Q4HP PRN PO HEARTBURN/ INDIGESTION Last administered on 06/26/17t 12:09; Start 06/17/17 at 17:00; Stop 07/17/17 at 16:59 Folic Acid (Folic Acid) 1 mg DAILY PO Last administered on 06/26/17 09:14; Start 06/17/17 at 09:00; Stop 07/17/17 at 08:59 Haloperidol (Haldol) 10 mg STAT STAT PO Last administered on 06/25/17 12:19; Start 06/25/17 at 12:13; Stop 06/25/17 at 12:14; Status DC Home Med (Med Rec Complete!) ASDIRECTED XX ; Start 06/17/17 at 09:30; Stop at 09:30; Status DC Hydroxyzine HCl (Atarax) 50 mg Q6H PO ; Start 06/21/17 at 18:00; Stop 06/21/17 at 18:39; Status DC Hydroxyzine HCl (Atarax) 50 mg Q6HP PRN PO anxiety Last administered on 11:10; Start 06/21/17 at 18:00; Stop 07/21/17 at 17:59 Lorazepam (Ativan) 0.5 mg STAT STAT PO Last administered on 06/17/17 09:04; Start 06/17/17 at 09:04; Stop 06/17/17 at 09:05; Status DC Lorazepam (Ativan) 1 mg BIDP PRN PO ANXIETY Last administered on 06/18/17 21: 00; Start 06/18/17 at 11:00; Stop 06/19/17 at 11:00; Status DC Lorazepam (Ativan) 1 mg STAT STAT PO Last administered on 06/17/17 11:42; Start 06/17/17 at 11:42; Stop 06/17/17 at 11:43; Status DC Lorazepam (Ativan) 2 mg ASDIRECTED PRN PO SEE PROTOCOL Last administered on 21:34; Start 06/17/17 at 17:00; Stop 06/18/17 at 10:51; Status DC Magnesium Hydroxide (Milk Of Magnesia) 30 ml DAILYPRN PRN PO CONSTIPATION; Start 06/17/17 at 17:00; Stop 07/17/17 at 16:59 Multivitamins (Theragram-M) 1 tab DAILY PO Last administered on 06/26/17 09:14 ; Start 06/17/17 at 09:00; Stop 07/17/17 at 08:59 Olanzapine (ZyPREXA ZYDIS) 5 mg Q6HP PRN PO ANXIETY/AGITATION Last administered on 06/26/17 09:18; Start 06/19/17 at 13:00; Stop 07/19/17 at 12:59 Olanzapine (ZyPREXA) 2.5 mg QHS PO Last administered on 06/19/17 20:13; Start 06/18/17 at 21:00; Stop 06/20/17 at 19:23; Status DC Olanzapine (ZyPREXA) 5 mg QHS PO Last administered on 06/22/17 20:43; Start at 21:00; Stop 06/23/17 at 13:57; Status DC Olanzapine (ZyPREXA) 10 mg QHS PO Last administered on 06/25/17 20:18; Start 06/23/17 at 21:00; Stop 07/23/17 at 20:59 Quetiapine Fumarate (SEROquel) 200 mg BID PO Last administered on 06/25/17 20: 51; Start 06/25/17 at 09:00; Stop 07/25/17 at 08:59 Thiamine HCl (Thiamine HCl) 100 mg BID PO Last administered on 06/20/17 08:58 ; Start 06/17/17 at 17:30; Stop 06/20/17 at 09:01; Status DC Trazodone HCl (Desyrel) 50 mg QHSP PRN PO INSOMNIA Last administered on 20:51; Start 06/17/17 at 17:00; Stop 07/17/17 at 16:59 Allergies Coded Allergies: No Known Allergies (Unverified , 06/17/17) GABRIELE CANALES MD Jun 26, 2017 15:59
[2017-06-26 18:00] VITALS: BP 125/75
[2017-06-26] MEDS: traZODone 50 MG TAB PO PRN (20:27)
[2017-06-26] MEDS: OLANZapine 10 MG TAB PO SCH (20:27)
[2017-06-27 07:10] VITALS: BP 132/80
[2017-06-27] MEDS: FOLIC ACID 1 MG TAB PO SCH (08:07)
[2017-06-27] MEDS: MULTIVITAMINS/MINERALS THERAP 1 TAB PO SCH (08:07)
[2017-06-27] MEDS: QUEtiapine FUMARATE 200 MG TAB PO SCH ×2 (08:08→20:03)
[2017-06-27] MEDS: OLANZapine ORAL DISINTEGRATING TAB 5MG PO PRN ×2 (08:52→17:17)
[2017-06-27] MEDS: hydrOXYzine 50 MG TAB PO PRN (12:27)
--- NOTE | 2017-06-27 15:59 | MHIPNPDOC ---
[facility] Progress Note Progress Note DATE OF SERVICE: 06/27/17 HISTORY: Patient was seen and evaluated. He reported that he is feeling better with current treatment but refused to go up on the dose of Zyprexa because he ' remembered'few years ago when he was on Zyprexa at the higher dose He was feeling like 'zombie' & not himself. He also reported that he has been having some mood changes, but was trying to treat himself with alcohol and marijuana instead of going to a psychiatrist. Again discussed about substance use treatment, He was ambivalent about follow-up outpatient for substance use and willing to go for outpatient treatment for Psychiatry. He reported that he is trying to use the when necessary medication less, but 'to get more rest', He likes to use the when necessary medications, discussed about when necessary medications and to use it only when indicated. He continued to deny any suicidal or homicidal ideations and also denies any psychotic symptoms. His mood remains irritable at times but no agitation or aggressive behavior reported. Patient did not need any IM medications or restraints. Sleeping fine with current treatment but refused to eat unit food. VITAL SIGNS: See below. CURRENT MEDICATIONS: See below. MENTAL STATUS EXAMINATION: 41yo male sitting in the chair, looks appropriate for the stated age, fair hygiene and grooming, increased psychomotor activities, no abnormal movements, superficially cooperative with fair eye contact, speech is increased in rate, normal rhythm, increased amount, mood is irritable, affect constricted and mood congruent, thought process is logical & goal directed, denies suicidal and homicidal ideations, denies hallucinations, aaox3, fair immediate, short term and predatory animal exterminator memory, limited insight, fair judgement and impulse control DIAGNOSES: 1. Bipolar disorder, current episode manic versus substance induced mood disorder. MANAGEMENT PLAN: Zyprexa to 10mg HS TIME SPENT:, 15 minutes. Vital Signs Vital Signs Date Time Temp Pulse Resp B/P (MAP) Pulse Ox O2 Delivery O2 Flow Rate FiO2 06/27/17 07:10 97.1 89 16 132/80 (97) Room Air Current Medications Current Medications Acetaminophen (Tylenol Tab) 650 mg Q6HP PRN PO HEADACHE or DISCOMFORT; Start at 17:00; Stop 07/17/17 at 16:59 Al Hydrox/Mg Hydrox/Simethicone (Mylanta) 30 ml Q4HP PRN PO HEARTBURN/ INDIGESTION Last administered on 06/26/17 12:09; Start 06/17/17 at 17:00; Stop 07/17/17 at 16:59 Folic Acid (Folic Acid) 1 mg DAILY PO Last administered on 06/27/17 08:07; Start 06/17/17 at 09:00; Stop 07/17/17 at 08:59 Haloperidol (Haldol) 10 mg STAT STAT PO Last administered on 06/25/17 12:19; Start 06/25/17 at 12:13; Stop 06/25/17 at 12:14; Status DC Home Med (Med Rec Complete!) ASDIRECTED XX ; Start 06/17/17 at 09:30; Stop at 09:30; Status DC Hydroxyzine HCl (Atarax) 50 mg Q6H PO ; Start 06/21/17 at 18:00; Stop 06/21/17 at 18:39; Status DC Hydroxyzine HCl (Atarax) 50 mg Q6HP PRN PO anxiety Last administered on 12:27; Start 06/21/17 at 18:00; Stop 07/21/17 at 17:59 Lorazepam (Ativan) 0.5 mg STAT STAT PO Last administered on 06/17/17 09:04; Start 06/17/17 at 09:04; Stop 06/17/17 at 09:05; Status DC Lorazepam (Ativan) 1 mg BIDP PRN PO ANXIETY Last administered on 06/18/17 21: 00; Start 06/18/17 at 11:00; Stop 06/19/17 at 11:00; Status DC Lorazepam (Ativan) 1 mg STAT STAT PO Last administered on 06/17/17 11:42; Start 06/17/17 at 11:42; Stop 06/17/17 at 11:43; Status DC Lorazepam (Ativan) 2 mg ASDIRECTED PRN PO SEE PROTOCOL Last administered on 21:34; Start 06/17/17 at 17:00; Stop 06/18/17 at 10:51; Status DC Magnesium Hydroxide (Milk Of Magnesia) 30 ml DAILYPRN PRN PO CONSTIPATION; Start 06/17/17 at 17:00; Stop 07/17/17 at 16:59 Multivitamins (Theragram-M) 1 tab DAILY PO Last administered on 06/27/17 08:07 ; Start 06/17/17 at 09:00; Stop 07/17/17 at 08:59 Olanzapine (ZyPREXA ZYDIS) 5 mg Q6HP PRN PO ANXIETY/AGITATION Last administered on 06/27/17 08:52; Start 06/19/17 at 13:00; Stop 07/19/17 at 12:59 Olanzapine (ZyPREXA) 2.5 mg QHS PO Last administered on 06/19/17 20:13; Start 06/18/17 at 21:00; Stop 06/20/17 at 19:23; Status DC Olanzapine (ZyPREXA) 5 mg QHS PO Last administered on 06/22/17 20:43; Start at 21:00; Stop 06/23/17 at 13:57; Status DC Olanzapine (ZyPREXA) 10 mg QHS PO Last administered on 06/26/17 20:27; Start 06/23/17 at 21:00; Stop 07/23/17 at 20:59 Quetiapine Fumarate (SEROquel) 200 mg BID PO Last administered on 06/25/17 20: 51; Start 06/25/17 at 09:00; Stop 07/25/17 at 08:59 Thiamine HCl (Thiamine HCl) 100 mg BID PO Last administered on 06/20/17 08:58 ; Start 06/17/17 at 17:30; Stop 06/20/17 at 09:01; Status DC Trazodone HCl (Desyrel) 50 mg QHSP PRN PO INSOMNIA Last administered on 20:27; Start 06/17/17 at 17:00; Stop 07/17/17 at 16:59 Allergies Coded Allergies: No Known Allergies (Unverified , 06/17/17) GABRIELE CANALES MD Jun 27, 2017 15:59
[2017-06-27 18:25] VITALS: BP 130/81
[2017-06-27] MEDS: OLANZapine 10 MG TAB PO SCH (20:02)
[2017-06-27] MEDS: traZODone 50 MG TAB PO PRN (21:01)
[2017-06-28] MEDS: hydrOXYzine 50 MG TAB PO PRN (01:34)
[2017-06-28] MEDS: OLANZapine ORAL DISINTEGRATING TAB 5MG PO PRN (06:24)
[2017-06-28 06:50] VITALS: BP 131/82
[2017-06-28] MEDS: FOLIC ACID 1 MG TAB PO SCH (08:19)
[2017-06-28] MEDS: MULTIVITAMINS/MINERALS THERAP 1 TAB PO SCH (08:19)
[2017-06-28] MEDS: QUEtiapine FUMARATE 200 MG TAB PO SCH (08:20)
[2017-06-28] MEDS ORDERED: HYDRO50TAB PO (09:20)
[2017-06-28] MEDS ORDERED: TRAZO50TA PO (09:20)
[2017-06-28] MEDS ORDERED: OLAN10TA2 PO (09:20)
[2017-06-28] MEDS ORDERED: FOLI1TAB4 PO (09:20)
[2017-06-28] MEDS ORDERED: VITMTA PO (09:22)
--- NOTE | 2017-06-28 16:31 | MHDSPDOC ---
[facility] Discharge Summary Discharge Summary DATE OF ADMISSION: Jun 17, 2017 at 13:59 DATE OF DISCHARGE: Jun 28, 2017 at 10:30 DISCHARGE DIAGNOSES: 1. Bipolar disorder type I, current episode manic, without psychotic symptoms. 2., Alcohol, and marijuana use disorder. REASON FOR ADMISSION: Manic symptoms, bizarre behavior From H&P: "SUBJECTIVE: He is 41 years old. He is from his partner. They have a 9-year-old daughter who lives with her mother in [place]. The patient lives in [place]. He sees her fairly regularly, last saw her last week. The patient was brought in to the emergency room as he was found at [facility]. The police had been called there as he was found to be running around naked. He informed police that he did not have anything to live for, was drinking, was smoking pot. He remembers this only vaguely. He was brought in, assessed, was quite vague and was admitted. 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 He says he has been there for about 6 months and this is the steadiest job that he has found lately. He does not have a fixed place that he stays at, was with a friend from December to March of this year, and then since then has been living at different friend's places for a few days at a time, has stayed at his mother's place for a couple of nights off and on as well , and apparently lately has spent a night or two in his car. It should be noted that the history is obtained from the patient, as well as from the chart itself. Says his mother told him a few nights ago that he needed to leave. He says that she does not need to give him a reason. He got out of work on Monday and decided to drive to [facility]. He says that he has done that periodically in the past, as the family would tend to come here and camp during the summer and he had fond memories of it and wanted to watch the sunset. Says he got here, and took a few beers, says that they are more potent than usual beers and does not remember much after that other than being brought here. He denies that he was trying to kill himself, however. 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 Says he drinks fairly regularly, suggests drinks possibly more than he should though is vague about this. He also says that he smokes cannabis daily, often in the morning, and then later in the day. Says it keeps his moods stable and that without it there are times when his moods shoot up, feels elated, though he was rather reluctant to admit that and he feels much more energetic than his surroundings or usual, has racing thoughts, rapid speech. Says others point it out to him and that when he smokes the pot that it brings the mood down to an even keel. He feels it prevents it from diminishing further and him becoming depressed. He says that without it, when moods shoot up, his need for sleep diminishes, he is full of energy, more so than usual, has plenty of ideas, says may start doing things but has a hard time keeping up and then tends to come down after 3 to 5 days. Says the cannabis is the only thing he has found to stabilize him. Says that there are times when he has been depressed, but not for a while, though is vague on this. Does say he was depressed a few years ago, then decided to go to [place] to visit his brother and then go to the ocean and drown himself, but says never got as far as the beach. Was hospitalized in [place] at the time. Was there for about 5 days, and then discharged. He suggests that he may have been diagnosed with bipolar disorder at that time. This is about 5 years ago. Says the only time he tried taking his life is when he overdosed about 13 years ago. He says that he has seen a psychiatrist/therapist in the past , but is somewhat vague on this. Says was given pills frequently and did not like that. Says that they sedated him and depressed him, they included Seroquel and Depakote among them. He does say, however, that he felt a low dose of Zyprexa was useful at 2.5 mg. Says that this tended to help. Has not been in treatment for a while. He feels he is almost back to his usual self, says had a good night of sleep last night in the hospital and felt that he needed it. He has spoken with his mother , somewhat reluctantly, to let her know that he is in the hospital. Says has been trying to find a place for himself so his situation becomes steadier and his daughter can visit him with comfort. He acknowledges that he tends to spend a fair amount of money on various things. Does not think that it is confined to times he has an elated mood. PAST PSYCHIATRIC HISTORY: As indicated above. Has had at least one previous hospitalization. Has attempted his life on one occasion. Has been in outpatient care for a brief while, but none lately. FAMILY PSYCHIATRIC HISTORY: Denies any, but eludes to maternal grandmother having spent time in the hospital. Does say his sister, who lives with his mother, takes Xanax regularly. MEDICAL HISTORY: No acute medical problems, though an MRI of the brain done here shows an old lacunar infarct in the temporal region, left posterior temporal lobe. No acute concerns. MEDICATIONS: None. ALLERGIES: No known drug allergies. SOCIAL HISTORY: Was raised in [place]. When asked about his childhood he teared up and says that he did not want to talk about it, but alluded to difficult times. He does not think that he gets nightmares about them, but does have thoughts about them. Says his parents would try to get him to talk about matters related to his childhood, but again he is vague on this. 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 Apparently has a bachelor's degree. He has a child, a daughter who is 9 years old and lives with the patient's ex partner, the child's mother, in [place]. They have been for awhile." CONSULTANTS INVOLVED: Medical evaluation and treatment TREATMENT AND PROGRESS ON THE UNIT : The patient was admitted on and was started on Zyprexa initially patient was related and having grandiose delusions and needed multiple verbal redirection to control anger. He was also started on when necessary medications of Zydis and hydroxyzine for anxiety and agitation and trazodone for his sleep problems. Patient also needed one time Seroquel 200 mg for agitation to Zyprexa was titrated up to 10 mg at nighttime and patient refused to go up on the dose because he reported that in the past. He went on a higher dose of Zyprexa and was developing side effects, but he was willing to continue outpatient treatment and work with outpatient psychiatrist, or changes in the treatment, including increasing the dose of Zyprexa. Patient responded well to the treatment and his mood was stabilized. Patient was initially started on CIWA protocol, but his vital signs were stable and did not need to continue it. HOSPITAL COURSE: Initially after the admission, patient was elected and was having grandiose delusions, was irritable and getting angry easily. He remained to himself with limited interaction with others in the unit and he also refused to eat in The unit. He responded well to the treatment and his mood stabilized more. Denied any suicidal or homicidal ideations and also denied any craving for drugs and refused to go for outpatient treatment for substance use , even after explaining the need for it multiple times. Patient did not need any restraints. Constant observations or IM medications while being in the hospital DISCHARGE ASSESSMENT:. Patient reported that his mood has been more stable and denied any elation or grandiosity. He also denied any suicidal or homicidal ideations, intentions or plans. He denied any psychotic symptoms including paranoid ideations or hallucinations. MENTAL STATUS EXAMINATION ON DISCHARGE: 41yo male sitting in the chair, looks appropriate for the stated age, fair hygiene and grooming, normal psychomotor activities, no abnormal movements, cooperative with fair eye contact, speech is normal in rate, rhythm, amount and prosody, mood is 'fine', affect full and mood congruent, thought process is logical and goal directed, denies suicidal and homicidal ideations, denies hallucinations, no delusions elicited, aaox3, fair immediate, short term and terminal clerk memory, fair insight, judgement and impulse control MEDICATIONS ON DISCHARGE: -Zyprexa 10 mg at bedtime for Mood problem. PLAN/FOLLOWUP ARRANGEMENTS: As arranged and noted by category planner. The amount of time spent in the coordination of care for this patient was approximately 30 minutes. Vital Signs/I&Os Vital Signs Date Time Temp Pulse Resp B/P (MAP) Pulse Ox O2 Delivery O2 Flow Rate FiO2 06/28/17 06:50 97.7 82 18 131/82 (98) Room Air Medications Scheduled Folic Acid (Folic Acid) 1 Mg Tab, 1 MG PO DAILY for alcohol use for 7 Days, #7 Multivitamins *[facility] STOCKED* (Edilma Hyman Plus *[facility] STOCKED*) 1 Tab Tab, 1 TAB PO DAILY for alcohol use for 7 Days, #7 Olanzapine (Olanzapine) 10 Mg Tab, 10 MG PO QHS for MOOD for 7 Days, #7 Scheduled PRN Hydroxyzine HCl (Hydroxyzine HCl) 50 Mg Tab, 50 MG PO Q6HP PRN for anxiety for 7 Days, #21 Trazodone HCl (Trazodone HCl) 50 Mg Tab, 50 MG PO QHSP PRN for INSOMNIA for 7 Days, #7 Allergies Coded Allergies: No Known Allergies (Unverified , 06/17/17) GABRIELE CANALES MD Jun 28, 2017 16:31
== END 2017-06-28 10:30 | disposition home or self-care (01) | DRG 753 ==
LOC: M ED 01:56 → M ED INP 13:59 → M PSY 14:55
PROVIDERS: ADMIT Psychiatry & Neurology Psychiatry; ATTEND Psychiatry & Neurology Psychiatry
DX: F31.9 Bipolar disorder, unspecified (principal); F10.10 Alcohol abuse, uncomplicated; F12.90 Cannabis use, unspecified, uncomplicated; Z79.899 Other long term (current) drug therapy